=== PATIENT | female | born 1940 | race Two or more races ===

== ENCOUNTER 2023-06-26 16:34 | Emergency (ER) | payer MEDICARE, OTHER ==
[~2023-06-26] VITALS: Ht 167.6 cm; Wt 76.3 kg
[2023-06-26] MEDS ORDERED: HYDROcodone-ACET 5/325MG TAB PO ONE (17:00)
[2023-06-26] MEDS ORDERED: SODIUM CHLORIDE 0.9% 1,000 ML IV ONE ×2 (17:00→19:15)
[2023-06-26 17:21] LABS: Basophils # (auto) 0.1 10 ^3/uL (0-0.2); Basophils % (auto) 0.7 % (0.0-2.0); Eosinophils # (auto) 0.1 10 ^3/uL (0-0.8); Eosinophils % (auto) 0.8 % (0.0-7.0); Hematocrit 32.3 % (36.0-46.0); Hemoglobin 10.6 g/dL (12.2-16.2); Lymphocytes # (auto) 2.3 10 ^3/uL (0.4-5.4); Lymphocytes % (auto) 25.2 % (10.0-50.0); Mean Corpuscular Hemoglobin 29.1 pg (28.0-32.0); Mean Corpuscular Hgb Conc. 32.9 g/dL (32.0-36.0); Mean Corpuscular Volume 88.4 fL (80.0-100.0); Monocytes # (auto) 0.7 10 ^3/uL (0-1.3); Neutrophils # (auto) 5.9 10 ^3/uL (1.6-8.6); Neutrophils % (auto) 65.3 % (37.0-80.0); Nucleated Red Blood Cells % 0.1 %; Red Blood Cells 3.65 10^6/uL (4.0-5.20); Red Cell Distribution Width 15.6 % (11.8-14.3); White Blood Cell 9.1 10^3/uL (4.4-10.8)
[2023-06-26 17:36] LABS: INR 0.98 (0.9-1.15); Partial Thromboplastin Time 27.1 SEC (24.5-34.5); Prothrombin Time 10.3 sec (9.3-11.8)
[2023-06-26 17:41] LABS: Albumin 3.5 g/dL (3.4-5.0); BUN/Creatinine Ratio 16.4 (10.0-20.0); Magnesium 2.1 mg/dL (1.6-2.6); Potassium 4.2 mmol/L (3.5-5.1)
[2023-06-26 17:44] LABS: Bilirubin, Total 0.4 mg/dL (0.2-1.0); Total Protein 7.7 g/dL (6.4-8.2)
[2023-06-26 19:17] LABS: Urine Bacteria FEW /hpf (None Seen); Urine Blood Negative /uL (Negative); Urine Clarity HAZY (Clear); Urine Color Yellow (Yellow); Urine Hyaline Cast MANY /lpf (0 - 2); Urine Mucus FEW (None Seen); Urine Protein, UAD 1+ (Negative); Urine Specific Gravity 1.019 (1.001-1.035); Urine Urobilinogen Normal (Negative); Urine WBC 31 /hpf (0 - 5); Urine pH 5.5 (5.0-8.0)
[2023-06-26] MEDS ORDERED: cefTRIAXone SOD 1,000 MG VL IM ONE (19:30)
[2023-06-26] MEDS ORDERED: ACET500T58 PO (20:41)
[2023-06-26] MEDS ORDERED: LEVO750T8 PO (20:41)
[2023-06-27 01:00] VITALS: BP 123/49; PULSE 69; RESP 18; TEMP 97.4; O2SAT 97
== END 2023-06-27 01:01 | disposition home or self-care (01) ==
LOC: ER 16:34
DX: N39.0 Urinary tract infection, site not specified (principal); D64.9 Anemia, unspecified; N17.9 Acute kidney failure, unspecified; E86.1 Hypovolemia; K57.90 Diverticulosis of intestine, part unspecified, without perforation or abscess without bleeding; R06.02 Shortness of breath
CPT/HCPCS: 36415; 71045; 74176; 80053; 81001; 82962; 83735; 83880; 84484; 85025; 85610; 85730; 93005; 96360; 96361; 96372; 99285; J0696; J7030

== ENCOUNTER 2024-09-08 18:20 | Inpatient (IN) | payer MEDICARE, OTHER ==
[~2024-09-08] VITALS: Ht 157.5 cm; Wt 75.3 kg
[~2024-09-08 18:20] MED LIST: ACET500T58 PO; LEVO750T8 PO
[2024-09-08] MEDS: HYDROmorphone HCL 2 MG/ML VL/or syr IM ONE (19:57)
[2024-09-08 20:16] LABS: Basophils # (auto) 0 10 ^3/uL (0-0.2); Basophils % (auto) 0.9 % (0.0-2.0); Eosinophils # (auto) 0.2 10 ^3/uL (0-0.8); Hematocrit 29.3 % (36.0-46.0); Hemoglobin 9.5 g/dL (12.2-16.2); Lymphocytes # (auto) 2.2 10 ^3/uL (0.4-5.4); Lymphocytes % (auto) 38.3 % (10.0-50.0); Mean Corpuscular Hemoglobin 27.1 pg (28.0-32.0); Mean Corpuscular Hgb Conc. 32.5 g/dL (32.0-36.0); Mean Corpuscular Volume 83.5 fL (80.0-100.0); Monocytes # (auto) 0.5 10 ^3/uL (0-1.3); Monocytes % (auto) 9.2 % (0.0-12.0); Neutrophils # (auto) 2.8 10 ^3/uL (1.6-8.6); Neutrophils % (auto) 48.6 % (37.0-80.0); Nucleated Red Blood Cells % 0.1 %; Platelet Count (auto) 263 10^3/uL (140-450); Red Cell Distribution Width 17.2 % (11.8-14.3); White Blood Cell 5.7 10^3/uL (4.4-10.8)
[2024-09-08 20:34] LABS: Alanine Aminotransferase 13 U/L (7-40); Alkaline Phosphatase 95 U/L (46-116); Calcium 9.8 mg/dL (8.7-10.4); Carbon Dioxide 27 mmol/L (20-31); Chloride 108 mmol/L (98-107); Glucose 120 mg/dL (74-106); Lipase 24 U/L (12-53); Potassium 4.5 mmol/L (3.5-5.1)
[2024-09-08 20:35] LABS: Albumin 4.4 g/dL (3.2-4.8); Anion Gap 3 (5-15); Aspartate Aminotransferase 20 U/L (13-40); BUN/Creatinine Ratio 14.9 (10.0-20.0); Bilirubin, Total 0.3 mg/dL (0.2-1.0); Blood Urea Nitrogen 15 mg/dL (9-23); Sodium 138 mmol/L (136-145); Total Protein 7.2 g/dL (5.7-8.2)
[2024-09-08 22:08] LABS: Urine Bacteria None Seen /hpf (None Seen)
[2024-09-08 22:18] LABS: Urine Blood Negative /uL (Negative); Urine Clarity Clear (Clear); Urine Color Light-Yellow (Yellow); Urine Protein, UAD Negative (Negative); Urine Urobilinogen Normal (Negative); Urine WBC 5 /hpf (0 - 5); Urine pH 5.5 (5.0-9.0)
[2024-09-08 23:37] VITALS: PULSE 73; RESP 14; O2SAT 97
[2024-09-08] MEDS: AMOXICILLIN/CLAVUL 875 MG TAB PO ONE (23:52)
[2024-09-09] VITALS (7 sets, daily range): BP systolic 106–138; BP diastolic 45–70; PULSE 60–77; RESP 16–18; TEMP 97.9–99; O2SAT 95–100
[2024-09-09] MEDS ORDERED: ACETAMINOPHEN 325 MG TAB PO PRN (02:30)
[2024-09-09] MEDS: ACCU-CHEK COMFORT CURVE STRIP VI ONE (04:30)
[2024-09-09] MEDS: InsuLIN REG 1unit/0.01ml Soln (100units/ml) SC ONE (04:30)
[2024-09-09] MEDS: DEXTROSE (50%) 50ML SYRG IV ONE (04:30)
[2024-09-09] MEDS: metroNIDAZOLE 500MG/100ML 100 ML IV SCH (05:37)
[2024-09-09 07:02] LABS: Alanine Aminotransferase 13 U/L (7-40); Albumin 3.9 g/dL (3.2-4.8); Alkaline Phosphatase 88 U/L (46-116); Anion Gap 6 (5-15); Aspartate Aminotransferase 19 U/L (13-40); BUN/Creatinine Ratio 14.3 (10.0-20.0); Bilirubin, Total 0.4 mg/dL (0.2-1.0); Blood Urea Nitrogen 13 mg/dL (9-23); Calcium 9.6 mg/dL (8.7-10.4); Carbon Dioxide 24 mmol/L (20-31); Chloride 109 mmol/L (98-107); Glucose 102 mg/dL (74-106); Potassium 4.1 mmol/L (3.5-5.1); Sodium 139 mmol/L (136-145); Total Protein 6.5 g/dL (5.7-8.2)
[2024-09-09] MEDS: PANTOPRAZOLE 40 MG/10 ML VIAL INJ IV ONE (07:43)
[2024-09-09] MEDS: HYDROcodone-ACET 5/325MG TAB PO PRN (07:45)
[2024-09-09 07:55] LABS: Basophils # (auto) 0.1 10 ^3/uL (0-0.2); Basophils % (auto) 0.9 % (0.0-2.0); Eosinophils # (auto) 0.2 10 ^3/uL (0-0.8); Eosinophils % (auto) 3.4 % (0.0-7.0); Hematocrit 27.3 % (36.0-46.0); Lymphocytes # (auto) 2.2 10 ^3/uL (0.4-5.4); Lymphocytes % (auto) 38.7 % (10.0-50.0); Mean Corpuscular Hemoglobin 27.7 pg (28.0-32.0); Mean Corpuscular Hgb Conc. 33.2 g/dL (32.0-36.0); Mean Corpuscular Volume 83.5 fL (80.0-100.0); Monocytes # (auto) 0.6 10 ^3/uL (0-1.3); Monocytes % (auto) 10.2 % (0.0-12.0); Neutrophils # (auto) 2.6 10 ^3/uL (1.6-8.6); Neutrophils % (auto) 46.8 % (37.0-80.0); Nucleated Red Blood Cells % 0.2 %; Platelet Count (auto) 248 10^3/uL (140-450); Red Blood Cells 3.26 10^6/uL (4.0-5.20); Red Cell Distribution Width 17.5 % (11.8-14.3); White Blood Cell 5.6 10^3/uL (4.4-10.8)
[2024-09-09] MEDS: cefTRIAXone 1GM/50ML D5W 50 ML IV SCH (08:30)
[2024-09-09] MEDS: AZITHROMYCIN 500MG/ 250ML 250 ML IV ONE (10:58)
[2024-09-10] VITALS (8 sets, daily range): BP systolic 106–128; BP diastolic 43–68; PULSE 60–90; RESP 14–19; TEMP 97.9–98.8; O2SAT 93–96
[2024-09-10 01:58] LABS: COVID19 ANTIGEN SOFIA FIA NEGATIVE (NEGATIVE)
[2024-09-10 07:25] LABS: Basophils # (auto) 0.1 10 ^3/uL (0-0.2); Eosinophils # (auto) 0.1 10 ^3/uL (0-0.8); Eosinophils % (auto) 2.4 % (0.0-7.0); Hematocrit 27.4 % (36.0-46.0); Hemoglobin 9.1 g/dL (12.2-16.2); Lymphocytes # (auto) 2.1 10 ^3/uL (0.4-5.4); Lymphocytes % (auto) 36.2 % (10.0-50.0); Mean Corpuscular Hemoglobin 27.8 pg (28.0-32.0); Mean Corpuscular Hgb Conc. 33.3 g/dL (32.0-36.0); Mean Corpuscular Volume 83.3 fL (80.0-100.0); Monocytes # (auto) 0.6 10 ^3/uL (0-1.3); Monocytes % (auto) 10.1 % (0.0-12.0); Neutrophils # (auto) 2.9 10 ^3/uL (1.6-8.6); Neutrophils % (auto) 50.3 % (37.0-80.0); Platelet Count (auto) 241 10^3/uL (140-450); Red Blood Cells 3.29 10^6/uL (4.0-5.20); Red Cell Distribution Width 17.4 % (11.8-14.3); White Blood Cell 5.7 10^3/uL (4.4-10.8)
[2024-09-10 07:31] LABS: Chloride 109 mmol/L (98-107); Potassium 4.1 mmol/L (3.5-5.1); Sodium 141 mmol/L (136-145)
[2024-09-10 07:32] LABS: Anion Gap 6 (5-15); Calcium 9.5 mg/dL (8.7-10.4); Carbon Dioxide 26 mmol/L (20-31)
[2024-09-10 07:38] LABS: BUN/Creatinine Ratio 10.8 (10.0-20.0); Blood Urea Nitrogen 11 mg/dL (9-23); Glucose 98 mg/dL (74-106)
[2024-09-10] MEDS ORDERED: AZITHROMYCIN 500MG/ 250ML 250 ML IV SCH (10:00)
[2024-09-10 12:35] LABS: % Iron Saturation 12.2 % (15-50)
[2024-09-10] MEDS: IRON SUCROSE COMPLEX 100 ML IV SCH (14:30)
[2024-09-10] MEDS: DOCUSATE SOD 100 MG CAP PO SCH (22:00)
[2024-09-11 01:00] VITALS: BP 115/50; PULSE 71; RESP 20; TEMP 97.9; O2SAT 98
[2024-09-11 05:00] VITALS: BP 127/52; PULSE 68; RESP 18; TEMP 98.1; O2SAT 95
[2024-09-11 08:00] VITALS: PULSE 82; RESP 20; O2SAT 98
[2024-09-11 08:16] LABS: Basophils # (auto) 0.1 10 ^3/uL (0-0.2); Basophils % (auto) 0.9 % (0.0-2.0); Eosinophils # (auto) 0.2 10 ^3/uL (0-0.8); Eosinophils % (auto) 2.9 % (0.0-7.0); Hematocrit 29.1 % (36.0-46.0); Hemoglobin 9.7 g/dL (12.2-16.2); Lymphocytes # (auto) 2.4 10 ^3/uL (0.4-5.4); Lymphocytes % (auto) 37.9 % (10.0-50.0); Mean Corpuscular Hemoglobin 27.6 pg (28.0-32.0); Mean Corpuscular Hgb Conc. 33.3 g/dL (32.0-36.0); Mean Corpuscular Volume 82.8 fL (80.0-100.0); Monocytes # (auto) 0.6 10 ^3/uL (0-1.3); Monocytes % (auto) 9.6 % (0.0-12.0); Neutrophils # (auto) 3.1 10 ^3/uL (1.6-8.6); Neutrophils % (auto) 48.7 % (37.0-80.0); Nucleated Red Blood Cells % 0.1 %; Platelet Count (auto) 254 10^3/uL (140-450); Red Blood Cells 3.51 10^6/uL (4.0-5.20); Red Cell Distribution Width 17.2 % (11.8-14.3); White Blood Cell 6.3 10^3/uL (4.4-10.8)
[2024-09-11 08:30] LABS: Calcium 9.8 mg/dL (8.7-10.4); Chloride 108 mmol/L (98-107); Potassium 4.1 mmol/L (3.5-5.1); Sodium 139 mmol/L (136-145)
[2024-09-11 08:31] LABS: Anion Gap 7 (5-15); Carbon Dioxide 24 mmol/L (20-31)
[2024-09-11 08:36] LABS: BUN/Creatinine Ratio 10.7 (10.0-20.0); Blood Urea Nitrogen 11 mg/dL (9-23); Glucose 105 mg/dL (74-106)
[2024-09-11 08:49] LABS: Hepatitis B Surface Antigen Negative (Negative)
[2024-09-11 09:11] LABS: Hepatitis C Antibody Negative (Negative)
[2024-09-11 11:13] LABS: Ferritin 7.9 ng/mL (10-291); Folate (Folic Acid) 13.51 ng/mL (>5.38)
[2024-09-11 13:00] VITALS: BP 115/68; PULSE 82; RESP 20; TEMP 98; O2SAT 98
[2024-09-11 16:45] VITALS: BP 157/54; PULSE 60; RESP 18; TEMP 97.7; O2SAT 100
[2024-09-11] MEDS ORDERED: FER325T PO (17:32)
[2024-09-11] MEDS ORDERED: CIP500T PO (17:32)
[2024-09-11] MEDS ORDERED: MET500T PO (17:32)
[2024-09-11] MEDS: CIPROFLOXACIN HCL 500 MG TAB PO SCH (18:38)
[2024-09-11 20:13] VITALS: BP 127/54; PULSE 60; RESP 18; TEMP 97.7; O2SAT 100
[2024-09-11] MEDS ORDERED: CIPROFLOXACIN HCL 500 MG TAB PO SCH (22:00)
[2024-09-11] MEDS ORDERED: metroNIDAZOLE 500 MG TAB PO SCH (22:00)
[2024-09-11] MEDS ORDERED: CEPHALEXIN 250 MG CAP PO SCH (22:00)
[2024-09-13] MEDS ORDERED: FERROUS SULFATE 325mg EC TAB PO SCH (10:00)
== END 2024-09-11 20:33 | disposition home health service (06) | DRG 248 ==
LOC: ER 18:20 → OVERFLOW 09-09 02:19 → WEST WING 09-09 06:30
PROVIDERS: ADMIT Internal Medicine; ATTEND Emergency Medicine
DX: A04.9 Bacterial intestinal infection, unspecified (principal); E11.22 Type 2 diabetes mellitus with diabetic chronic kidney disease; D50.9 Iron deficiency anemia, unspecified; E03.9 Hypothyroidism, unspecified; E66.9 Obesity, unspecified; N39.0 Urinary tract infection, site not specified; K59.09 Other constipation; N18.30 Chronic kidney disease, stage 3 unspecified; Z20.822 Contact with and (suspected) exposure to COVID-19; I12.9 Hypertensive chronic kidney disease with stage 1 through stage 4 chronic kidney disease, or unspecified chronic kidney disease; Z96.652 Presence of left artificial knee joint; Z79.899 Other long term (current) drug therapy; Z79.2 Long term (current) use of antibiotics; Z68.30 Body mass index [BMI] 30.0-30.9, adult
CPT/HCPCS: 36415; 71045; 74176; 80048; 80053; 81001; 82306; 82378; 82607; 82728; 82746; 82962; 83036; 83540; 83550; 83605; 83690; 84443; 84484; 85025; 86803; 87340; 87426; 93005; 96372; G0378; J2470; J3490

== ENCOUNTER 2024-11-27 13:07 | Inpatient (IN) | payer MEDICARE, OTHER ==
[~2024-11-27] VITALS: Ht 154.9 cm; Wt 69.5 kg
[~2024-11-27 13:07] MED LIST changes: -ACET500T58 PO; +CIP500T PO; +FER325T PO; -LEVO750T8 PO; +MET500T PO
--- NOTE | 2024-11-27 13:41 | ED.PDOC ---
SOB-HPI HPI Comments 84 y.o female with PMhx of thyroid disease, HTN and DM, presents to the ED for a chief complaint of SOB associated with a productive cough, green and yellow phlegm that started one week ago. Patient is unable to take a full breath and states vomiting present due to productive cough. Patient denies any chest pain, fever, chills, diarrhea. Time Seen by MD: 13:34 Primary Care Provider: MARGARET Felix notes: Nurses Notes, Medications, Allergies Information Source: Patient Mode of Arrival: Ambulatory Severity: Moderate Timing: Weeks (1) Duration: Since onset Context: At Rest History of: None Modifying Factors: Nothing Associated Signs and Symptoms: Cough If cough with SOB: Productive, Yellow, Green Past Medical History PAST MEDICAL HISTORY: DM, HTN, Thyroid Surgical History: Cholecystectomy Surgical History (Other): left knee and lower back FIELD NURSE History: No Pertinent FIELD NURSE History Family History Family History: Reviewed,noncontributory to illness, No family hx of Cancer, No family hx of DM, No family hx of Heart sharron, No family hx of HTN, No family hx ofKidney sharron, No family hx of Liver sharron, No family hx of Lung sharron, No family hx of Stroke Social History Smoker: Non-Smoker Alcohol: Denies ETOH Use Drugs: Denies Drug Use Lives In: Home Constitutional: reports: chills; denies: diaphoresis, fatigue, fever, malaise, sweats, weakness, others EENTM: denies: blurred vision, double vision, ear bleeding, ear discharge, ear drainage, ear pain, ear ringing, eye pain, eye redness, hearing loss, mouth pain, mouth swelling, nasal discharge, nose bleeding, nose congestion, nose pain, photophobia, tearing, throat pain, throat swelling, voice changes, others Respiratory: reports: cough, SOB at rest, shortness of breath, SOB with excertion; denies: hemoptysis, orthopnea, stridor, wheezing, others Cardiovascular: denies: chest pain, dizzy spells, diaphoresis, Dyspnea on exertion, edema, irregular heart beat, left arm pain, lightheadedness, palpitations, PND, syncope, others Gastrointestinal: denies: abdomen distended, abdominal pain, blood streaked bowels, constipated, diarrhea, dysphagia, difficulty swallowing, hematemesis, melena, nausea, poor appetite, poor fluid intake, rectal bleeding, rectal pain, vomiting, others Genitourinary: denies: abnormal vagina bleeding, burning, dyspareunia, dysuria, flank pain, frequency, hematuria, incontinence, pain, , vagina discharge, urgency, others Neurological: denies: dizziness, fainting, headache, left sided numbness, left sided weakness, numbness, paresthesia, pre-existing deficit, right sided numbness, right sided weakness, seizure, speech problems, tingling, tremors, we akness, others Musculoskeletal: denies: back pain, gout, joint pain, joint swelling, muscle pain, muscle stiffness, neck pain, others Integumetry: denies: bruises, change in color, change in hair/nails, dryness, laceration, lesions, lumps, rash, wounds, others Allergic/Immunocompromised: denies: Difficulty Healing, Frequent Infections, Hives, Itching, others Hematologic/Lymphatic: denies: anemia, blood clots, easy bleeding, easy bruising, swollen glands, others Endocrine: denies: excessive hunger, excessive sweating, excessive thirst, excessive urination, flushing, intolerance to cold, intolerance to heat, unexplained weight gain, unexplained weight loss, others Psychiatric: denies: anxiety, bipolar disorder, depression, hopeless, panic disorder, schizophrenia, sleepless, suicidal, others All Other Systems: Reviewed and Negative Physical Exam General Appearance: Moderate Distress HEENT: Normal ENT Inspection, Pharynx Normal, TMs Normal Neck: Full Range of Motion, Non-Tender, Normal, Normal Inspection Respiratory: Chest Non-Tender, Decreased Breath Sounds, No Accessory Muscle Use, Rhonchi Cardiovascular: No Edema, No JVD, No Murmur, No Gallop, Normal Peripheral Pulses, Regular Rate/Rhythm Breast Exam: Deferred Gastrointestinal: No Organomegaly, Non Tender, No Pulsatile Mass, Normal Bowel Sounds, Soft Genitalia: Deferred Pelvic: Deferred Rectal: Deferred Extremities: No calf tenderness, Normal capillary refill, Normal inspection, Normal range of motion, Non-tender, No pedal edema Musculoskeletal : Apperance: Normal Neurologic: Alert, threading machine setter II-XII nml as Tested, No Motor Deficits, Normal Affect, Normal Mood, No Sensory Deficits Cerebellar Function: Normal Reflexes: Normal Skin: Dry, Normal Color, Warm Lymphatic: No Adenopathy Was a procedure done? Was a procedure done?: No Differential Dx Differential Diagnosis: Asthma, Bronchitis, COPD, Pneumonia, Pulmonary Embolism, Respiratory Distress, URI X-Ray, Labs, Meds, VS Vital Signs Date Time Temp Pulse Resp B/P (MAP) Pulse Ox O2 Delivery O2 Flow Rate FiO2 11/27/24 13:54 98.2 90 20 128/63 (84) 96 11/27/24 13:32 20 96 Room Air* 0 21 Lab Test 11/27/24 14:30 Range/Units White Blood Count 9.6 4.4-10.8 10^3/uL Red Blood Count 3.64 L 4.0-5.20 10^6/uL Hemoglobin 10.3 L 12.2-16.2 g/dL Hematocrit 30.7 L 36.0-46.0 % Mean Corpuscular Volume 84.5 80.0-100.0 fL Mean Corpuscular Hemoglobin 28.4 28.0-32.0 pg Mean Corpuscular Hemoglobin Concent 33.7 32.0-36.0 g/dL Red Cell Distribution Width 19.7 H 11.8-14.3 % Platelet Count 275 140-450 10^3/uL Mean Platelet Volume 7.5 6.9-10.8 fL Neutrophils (%) (Auto) 73.0 37.0-80.0 % Lymphocytes (%) (Auto) 16.6 10.0-50.0 % Monocytes (%) (Auto) 9.3 0.0-12.0 % Eosinophils (%) (Auto) 0.8 0.0-7.0 % Basophils (%) (Auto) 0.3 0.0-2.0 % Neutrophils # (Auto) 7.0 1.6-8.6 10 ^3/uL Lymphocytes # (Auto) 1.6 0.4-5.4 10 ^3/uL Monocytes # (Auto) 0.9 0-1.3 10 ^3/uL Eosinophils # (Auto) 0.1 0-0.8 10 ^3/uL Basophils # (Auto) 0 0-0.2 10 ^3/uL Nucleated Red Blood Cells 0.0 % Sodium Level 138 136-145 mmol/L Potassium Level 4.4 3.5-5.1 mmol/L Chloride Level 106 98-107 mmol/L Carbon Dioxide Level 24 20-31 mmol/L Anion Gap 8 5-15 Blood Urea Nitrogen 19 9-23 mg/dL Creatinine 1.11 H 0.550-1.02 mg/dL Glomerular Filtration Rate Calc 49 >90 mL/min BUN/Creatinine Ratio 17.1 10.0-20.0 Serum Glucose 135 H 74-106 mg/dL Lactic Acid Level 1.1 0.4-2.0 mmol/L Calcium Level 10.0 8.7-10.4 mg/dL B-Type Natriuretic Peptide 66.02 0-100 pg/mL Chest x-ray IMPRESSION: 1. No acute cardiopulmonary pathology The patient's CBC and chemistry panel are within normal limits except for anemia with a hemoglobin of 10.3 and hematocrit of 31.7 The BNP is within normal limits The lactic acid is within normal limits At this time, the patient's oxygen saturation 96% The patient was being admitted at this time The patient is pending the COVID test as well as the influenza a and influenza B The patient was admitted Images Reviewed?: Images reviewed and evaluated by me Time of 1ST Reevaluation: 13:41 Reevaluation 1ST: Unchanged Patient Education/Counseling: Diagnosis, Treatment, Prognosis Family Education/Counseling: No Family Present Departure 1 Departure Time of Disposition: 17:05 Impression: Primary Impression: Acute respiratory failure Qualified Codes: J96.00 - Acute respiratory failure, unspecified whether with hypoxia or hypercapnia Additional Impression: Cough Qualified Codes: R05.1 - Acute cough Disposition: 09 ADMITTED INPATIENT Admit to: [facility] Condition: Fair Critical Care Note Critical Care Time?: No Stability Stability form required: Yes Unstable for transfer: Telemetry monitoring (Telemetry monitoring required), ED Physician Assesment (Clinical assesment) I personally scribed for HERMAN RODRIGUEZ MD ([email or web address]) on 11/27/24 at 13:41. Electronically submitted by Amber Terrell ([facility] I personally scribed for HERMAN RODRIGUEZ MD ([email or web address]) on 11/27/24 at 16:05. E lectronically submitted by Amber Terrell ([facility]). HERMAN RODRIGUEZ MD Nov 27, 2024 13:41
--- NOTE | 2024-11-27 14:14 | DVH ---
Chest x-ray Technique: PA and lateral views Comparison: 09/09/2024 CLINICAL INDICATION: Shortness of breath FINDINGS: Heart size is slightly prominent. Aorta is tortuous. No infiltrates or effusions. Degener ative changes in the thoracic spine IMPRESSION: 1. No acute cardiopulmonary pathology
[2024-11-27 14:53] LABS: Basophils # (auto) 0 10 ^3/uL (0-0.2); Basophils % (auto) 0.3 % (0.0-2.0); Eosinophils # (auto) 0.1 10 ^3/uL (0-0.8); Eosinophils % (auto) 0.8 % (0.0-7.0); Hematocrit 30.7 % (36.0-46.0); Hemoglobin 10.3 g/dL (12.2-16.2); Lymphocytes # (auto) 1.6 10 ^3/uL (0.4-5.4); Lymphocytes % (auto) 16.6 % (10.0-50.0); Mean Corpuscular Hemoglobin 28.4 pg (28.0-32.0); Mean Corpuscular Hgb Conc. 33.7 g/dL (32.0-36.0); Mean Corpuscular Volume 84.5 fL (80.0-100.0); Monocytes # (auto) 0.9 10 ^3/uL (0-1.3); Monocytes % (auto) 9.3 % (0.0-12.0); Platelet Count (auto) 275 10^3/uL (140-450); Red Blood Cells 3.64 10^6/uL (4.0-5.20); Red Cell Distribution Width 19.7 % (11.8-14.3); White Blood Cell 9.6 10^3/uL (4.4-10.8)
[2024-11-27 14:58] LABS: Chloride 106 mmol/L (98-107); Potassium 4.4 mmol/L (3.5-5.1); Sodium 138 mmol/L (136-145)
[2024-11-27 14:59] LABS: Anion Gap 8 (5-15); Carbon Dioxide 24 mmol/L (20-31)
[2024-11-27 15:04] LABS: BUN/Creatinine Ratio 17.1 (10.0-20.0); Blood Urea Nitrogen 19 mg/dL (9-23)
[2024-11-27 15:06] LABS: Glucose 135 mg/dL (74-106)
[2024-11-27] MEDS ORDERED: ONDANSETRON HCL 4 MG/2 ML VIAL IV PRN (19:45)
[2024-11-27] MEDS ORDERED: ALBUTEROL SULF 2.5 MG/0.5ML(0.5%) NEB SOLN NEB PRN (19:45)
[2024-11-27] MEDS ORDERED: DEXTROSE (50%) 50ML SYRG IV PRN (19:45)
[2024-11-27] MEDS: ACETAMINOPHEN 325 MG TAB PO PRN (21:52)
[2024-11-27] MEDS: METOPROLOL TARTRATE 50 MG TAB PO SCH (22:12)
[2024-11-27 22:13] VITALS: BP 119/54; PULSE 78; RESP 18; TEMP 98; O2SAT 96
[2024-11-27] MEDS: InsuLIN REG 1unit/0.01ml Soln (100units/ml) SC SCH (22:19)
[2024-11-27] MEDS: ACCU-CHEK COMFORT CURVE STRIP VI SCH (22:22)
[2024-11-27 22:30] VITALS: PULSE 72; O2SAT 96
[2024-11-27] MEDS: AZITHROMYCIN 500MG/ 250ML 250 ML IV ONE (22:54)
[2024-11-27 23:19] LABS: COVID19 ANTIGEN SOFIA FIA NEGATIVE (NEGATIVE); Rapid Influenza A Negative (Negative); Rapid Influenza B Negative (Negative)
[2024-11-27 23:50] VITALS: BP 119/51; PULSE 64
[2024-11-28] VITALS (11 sets, daily range): BP systolic 109–122; BP diastolic 51–66; PULSE 62–76; RESP 16–20; TEMP 97.6–98.3; O2SAT 95–100
--- NOTE | 2024-11-28 01:40 | DVHHP2 ---
History of Present Illness Reason for Visit: Shortness for breath History of Present Illness 84-year-old female presents for evaluation of shortness for breath. Patient presents with a five day history of worsening shortness for breath with associated productive cough, green phlegm and generalized weakness. She reports intermittent chills. Denies chest pain or palpitations. No other acute complaints reported. Past Medical History Hypothyroid, hypertension, diabetes mellitus Past Surgical History Knee Family History Noncontributory Smoke: No ALCOHOL: none Drugs: None Lives: with Family Review of Systems Review of Systems Review of systems are currently negative otherwise addressed in HPI. Allergies: Coded Allergies: NO KNOWN ALLERGIES (Unverified , 06/26/23) Medications Current Medications Medications Dose Ordered Sig/Ejnni Route Start Time Stop Time Status Last Admin Dose Admin Albuterol 2.5 mg Q6HPRN PRN NEB 11/27/24 19:45 Azithromycin 250 ml @ 125 mls/hr DAILY IV 11/28/24 10:00 Levothyroxine Sodium 100 mcg QAM@0600 PO 11/28/24 06:00 Metoprolol Tartrate 50 mg BID PO 11/27/24 22:00 11/27/24 22:12 50 MG Enalapril Maleate 2.5 mg DAILY PO 11/28/24 10:00 Allopurinol 300 mg DAILY PO 11/28/24 10:00 Diagnostic Test (Pha) 1 strip ACHS 11/27/24 22:00 11/27/24 22:22 1 STRIP Insulin Human Regular ACHS SC 11/27/24 22:00 11/27/24 22:19 2 UNITS Dextrose 50 ml UD PRN IV 11/27/24 19:45 Ondansetron HCl 4 mg Q4HP PRN IV 11/27/24 19:45 Enoxaparin Sodium 40 mg DAILY SC 11/28/24 10:00 Acetaminophen 650 mg Q6HP PRN PO 11/27/24 19:45 11/27/24 21:52 650 MG Exam Vital Signs Vital Signs Date Time Temp Pulse Resp B/P (MAP) Pulse Ox O2 Delivery O2 Flow Rate FiO2 11/28/24 01:24 98.0 63 18 119/51 96 0.0 21 98.0 11/28/24 00:33 Room Air* Exam Gen: 84-year-old female in mild distress Skin: Warm, dry, normal color and texture, no rash. HEENT: Normocephalic atraumatic, mucous membranes moist and pink. Neck: Cervical and supraclavicular nodes normal without enlargement, trachea is midline, thyroid gland is normal without masses. Pulmonary: Clear to auscultation and percussion bilaterally. Cardiac: Regular rate and rhythm. No murmur Abdomen: Soft, nontender, nondistended, bowel sounds present all 4 quadrants, no guarding, no rigidity, no organomegaly. Extremities: No cyanosis, clubbing, no edema Neuro: Cranial nerves II through XII grossly intact, normal affect and speech, no focal motor deficits. Labs/Xrays ORDERING PHYSICIAN: HERMAN RODRIGUEZ MD PROCEDURE(s): CXR2 - CHEST TWO VIEWS ROUTINE REASON: cough ORDER NUMBER(s): [id number], ACCESSION NUMBER(s): [id number] Chest x-ray Technique: PA and lateral views Comparison: 09/09/2024 CLINICAL INDICATION: Shortness of breath FINDINGS: Heart size is slightly prominent. Aorta is tortuous. No infiltrates or effusions. Degenerative changes in the thoracic spine IMPRESSION: 1. No acute cardiopulmonary pathology Labs Test 11/27/24 22:24 11/27/24 14:30 Range/Units Influenza Type A Antigen Negative Negative Influenza Type B Antigen Negative Negative SARS-CoV-2 Antigen (Rapid) Negative NEGATIVE White Blood Count 9.6 4.4-10.8 10^3/uL Red Blood Count 3.64 L 4.0-5.20 10^6/uL Hemoglobin 10.3 L 12.2-16.2 g/dL Hematocrit 30.7 L 36.0-46.0 % Mean Corpuscular Volume 84.5 80.0-100.0 fL Mean Corpuscular Hemoglobin 28.4 28.0-32.0 pg Mean Corpuscular Hemoglobin Concent 33.7 32.0-36.0 g/dL Red Cell Distribution Width 19.7 H 11.8-14.3 % Platelet Count 275 140-450 10^3/uL Mean Platelet Volume 7.5 6.9-10.8 fL Neutrophils (%) (Auto) 73.0 37.0-80.0 % Lymphocytes (%) (Auto) 16.6 10.0-50.0 % Monocytes (%) (Auto) 9.3 0.0-12.0 % Eosinophils (%) (Auto) 0.8 0.0-7.0 % Basophils (%) (Auto) 0.3 0.0-2.0 % Neutrophils # (Auto) 7.0 1.6-8.6 10 ^3/uL Lymphocytes # (Auto) 1.6 0.4-5.4 10 ^3/uL Monocytes # (Auto) 0.9 0-1.3 10 ^3/uL Eosinophils # (Auto) 0.1 0-0.8 10 ^3/uL Basophils # (Auto) 0 0-0.2 10 ^3/uL Nucleated Red Blood Cells 0.0 % Sodium Level 138 136-145 mmol/L Potassium Level 4.4 3.5-5.1 mmol/L Chloride Level 106 98-107 mmol/L Carbon Dioxide Level 24 20-31 mmol/L Anion Gap 8 5-15 Blood Urea Nitrogen 19 9-23 mg/dL Creatinine 1.11 H 0.550-1.02 mg/dL Glomerular Filtration Rate Calc 49 >90 mL/min BUN/Creatinine Ratio 17.1 10.0-20.0 Serum Glucose 135 H 74-106 mg/dL Lactic Acid Level 1.1 0.4-2.0 mmol/L Calcium Level 10.0 8.7-10.4 mg/dL B-Type Natriuretic Peptide 66.02 0-100 pg/mL Assessment/Plan Assessment/Plan Assessment Acute pneumonitis Acute respiratory distress Diabetes mellitus Hypertension Acute kidney injury Plan Admit the patient to Med surge to the hospitalist Lucy Med nebs Resume home medications Continue treatment per orders. Plan discussed with: Patient My Orders Orders - MIKEY SONG AGACNP Procedure Category Date Status Time Albuterol Medneb PHA 11/27/24 In Process (Ventolin Medneb) 19:45 Azithromycin 500mg/ PHA 11/28/24 In Process 250ml (Zithromax 50 10:00 Levothyroxine Tablet PHA 11/28/24 In Process (Synthroid Tablet) 06:00 Metoprolol Tartrate PHA 11/27/24 In Process Tablet (Lopressor Ta 22:00 Enalapril Tablet PHA 11/28/24 In Process (Vasotec Tablet) 10:00 Allopurinol Tablet PHA 11/28/24 In Process (Zyloprim Tablet) 10:00 Basic Metabolic Panel LAB 11/28/24 Logged 04:00 Glucose Blood PHA 11/27/24 In Process (Accu-Chek Comfort 22:00 Insulin R (Human) PHA 11/27/24 In Process (Insulin R) 22:00 Dextrose 50% Syringe PHA 11/27/24 In Process 19:45 Admit ADMIT 11/27/24 Transmitted 19:37 Ondansetron Hcl PHA 11/27/24 In Process (Zofran) 19:45 Enoxaparin Sodium PHA 11/28/24 In Process (Lovenox) 10:00 Complete Blood Count LAB 11/28/24 Logged 04:00 Cardiac DIET 11/28/24 Transmitted Diet-2gna,Lofat,Lochol Breakfast Condition: Stable JOEY 11/27/24 In Process 19:37 Acetaminophen Tablet PHA 11/27/24 In Process (Tylenol Tablet) 19:45 Bedrest With Bathroom JOEY 11/27/24 In Process Privileg 19:37 Date of Service: Nov 27, 2024 Billing Provider: MIKEY SONG Common Visit Codes: [id number] INP/OBS CARE (HIGH) MIKEY SONG Nov 28, 2024 01:40
[2024-11-28] MEDS ORDERED: INFLUENZA TRIVALENT 2024-2025 0.5 ML INJ IM ONE (03:00)
[2024-11-28 04:32] LABS: COVID19 ANTIGEN SOFIA FIA NEGATIVE (NEGATIVE); Rapid Influenza A Negative (Negative); Rapid Influenza B Negative (Negative)
[2024-11-28] MEDS: LEVOTHYROXINE SODIUM 100 MCG TAB PO SCH (06:20)
[2024-11-28] MEDS ORDERED: NAPR-957 PO (06:38)
[2024-11-28] MEDS ORDERED: METO25TA5 PO (06:40)
[2024-11-28] MEDS ORDERED: LEVO100T8 PO (06:40)
[2024-11-28] MEDS ORDERED: CITA-73 PO (06:40)
[2024-11-28] MEDS ORDERED: METF-370 PO (06:40)
[2024-11-28 07:30] LABS: Basophils # (auto) 0 10 ^3/uL (0-0.2); Basophils % (auto) 0.4 % (0.0-2.0); Eosinophils # (auto) 0.2 10 ^3/uL (0-0.8); Eosinophils % (auto) 2.1 % (0.0-7.0); Hematocrit 27.6 % (36.0-46.0); Hemoglobin 9.5 g/dL (12.2-16.2); Mean Corpuscular Hemoglobin 29.1 pg (28.0-32.0); Mean Corpuscular Hgb Conc. 34.2 g/dL (32.0-36.0); Mean Corpuscular Volume 85.1 fL (80.0-100.0); Monocytes # (auto) 1.1 10 ^3/uL (0-1.3); Monocytes % (auto) 11.6 % (0.0-12.0); Neutrophils # (auto) 5.8 10 ^3/uL (1.6-8.6); Neutrophils % (auto) 63.9 % (37.0-80.0); Platelet Count (auto) 230 10^3/uL (140-450); Red Blood Cells 3.25 10^6/uL (4.0-5.20); Red Cell Distribution Width 19.3 % (11.8-14.3); White Blood Cell 9.1 10^3/uL (4.4-10.8)
[2024-11-28 07:57] LABS: Potassium 4.4 mmol/L (3.5-5.1); Sodium 140 mmol/L (136-145)
[2024-11-28 07:58] LABS: Anion Gap 8 (5-15); Carbon Dioxide 25 mmol/L (20-31)
[2024-11-28 07:59] LABS: Calcium 9.1 mg/dL (8.7-10.4); Chloride 107 mmol/L (98-107)
[2024-11-28 08:04] LABS: BUN/Creatinine Ratio 18.6 (10.0-20.0)
[2024-11-28 08:09] LABS: Blood Urea Nitrogen 24 mg/dL (9-23); Glucose 118 mg/dL (74-106)
[2024-11-28] MEDS: ENOXAPARIN SOD 40 MG/0.4 ML SYRINGE SC SCH (11:06)
[2024-11-28] MEDS: ALLOPURINOL 100 MG TAB PO SCH (11:06)
[2024-11-28] MEDS: ENALAPRIL MALEATE 2.5 MG TAB PO SCH (11:07)
--- NOTE | 2024-11-28 12:55 | DVHPNRES ---
Progress Note Date Seen: Nov 28, 2024 Resident Creating Document: RENU SLADE RESIDENT Medical Necessity Reason Pt with a Central, PICC or Fol: No Subjective Review of Systems Patient is a 84-year-old female with past medical history of type 2 diabetes diagnosed 12 years ago, hypertension, thyroid disease, who came in due to shortness of breath. According to the patient for the last 2 weeks, she has been experiencing a productive cough of yellowish green sputum along with generalized body aches and shortness of breath. Patient denies similar symptoms in the past. Patient notes ill contacts her daughter and daughter's kids have been sick recently. Patient also notes some chest tightness as off late. Past surgical history: Left knee surgery, back surgery Home medications: Citalopram, levothyroxine, metformin, metoprolol, metronidazole Past Hospitalization: In 2023 at the [facility] for diverticulitis Social & Personal history: Patient lives with her daughter. Denies using tobacco, alcohol, drugs. Allergies: Denies Patient seen and examined at bedside. Patient is alert and oriented to time, place person and responding to all questions. General: Fatigue Eyes: No Pain, No Vision change, No Conjunctivae inflammation, No Eyelid inflammation, No Other, No Redness ENT: No Ear pain, No Ear discharge, No Nose pain, rhinorrhea, congestion, No Mouth pain, No Mouth swelling, No Throat pain, No Throat swelling, No Other Cardiovascular: No Chest Pain, No Palpitations, No Orthopnea, dyspnea, No Edema, No Lt Headedness, No Other Respiratory: Productive cough, No Shortness of breath, No SOB with exertion, No Wheezing, No Hemoptysis, No Pleuritic Pain, No Sputum, No Other Gastrointestinal: Nausea, No Vomiting, No Abdominal Pain, No Diarrhea, C onstipation, No Melena, No Hematochezia, No Other Genitourinary: No Dysuria, No Frequency, No Incontinence, No Hematuria, No Retention, No Other Musculoskeletal: No other, No neck pain, No shoulder pain, No arm pain, No back pain, No hand pain, No leg pain, No foot pain Skin: No Rash, No Lesions, No Jaundice, No Bruising, No Other Objective vital signs Vital Sign Date Time Temp Pulse Resp B/P (MAP) Pulse Ox O2 Delivery O2 Flow Rate FiO2 11/28/24 11:07 115/66 11/28/24 09:00 97.6 68 18 97 97.6 11/28/24 08:42 Nasal Cannula 1.0 11/28/24 08:42 24 Total Intake and Output 11/27/24 11/27/24 11/28/24 15:00 23:00 07:00 Intake Total 350 ml Balance 350 ml medications Current Medications Medications Dose Ordered Sig/Jenni Route Start Time Stop Time Status Last Admin Dose Admin Albuterol 2.5 mg Q6HPRN PRN NEB 11/27/24 19:45 Azithromycin 250 ml @ 125 mls/hr DAILY IV 11/28/24 10:00 Levothyroxine Sodium 100 mcg QAM@0600 PO 11/28/24 06:00 11/28/24 06:20 100 MCG Metoprolol Tartrate 50 mg BID PO 11/27/24 22:00 11/27/24 22:12 50 MG Enalapril Maleate 2.5 mg DAILY PO 11/28/24 10:00 11/28/24 11:07 2.5 MG Allopurinol 300 mg DAILY PO 11/28/24 10:00 11/28/24 11:06 300 MG Diagnostic Test (Pha) 1 strip ACHS 11/27/24 22:00 11/28/24 11:46 1 STRIP Insulin Human Regular ACHS SC 11/27/24 22:00 11/28/24 11:27 2 UNITS Dextrose 50 ml UD PRN IV 11/27/24 19:45 Ondansetron HCl 4 mg Q4HP PRN IV 11/27/24 19:45 Enoxaparin Sodium 40 mg DAILY SC 11/28/24 10:00 11/28/24 11:06 40 MG Acetaminophen 650 mg Q6HP PRN PO 11/27/24 19:45 11/27/24 21:52 650 MG Examination General Appearance: Cooperative. Well developed. Well nourished. NAD Head Exam: Normal inspection Neck Exam: Normal inspection. Non-tender. Normal alignment Pulmonary/Respiratory: Chest non-tender. Mildly decreased bilateral breath sounds, no crackles, no wheezing. Cardiovascular/Chest: Regular rate and rhythm. No murmurs. No JVD. Peripheral Pulses: 2+ Radial (R). 2+ Radial (L). 2+ Pedal (R). 2+ Pedal (L) Abdominal Exam: Normal bowel sounds. Soft. normal abdomen, no visible veins, Nontender. No hepatospenomegaly. No masses Ankle Exam: Negative ankle edema Lower extremities: Negative lower extremity edema Neuro/Mental Status: A&O x4. Coherent. Thoughts/Psych: Normal thought pattern. Appropriate mood and affect. Good judgement and insight Skin Exam: Normal inspection. Normal color. Warm. Dry laboratory and microbiology Laboratory Tests 11/28/24 07:13 Test 11/28/24 07:13 Range/Units Serum Glucose 118 H 74-106 mg/dL Labs and/or images reviewed: Labs reviewed by me, Image(s) reviewed by me Problem List/Assessment/Plan Problem List/Assessment/Plan Acute hypoxic respiratory failure on O2 via NC Acute Pneumonitis - CXR: No acute cardiopulmonary pathology - IV azithromycin - ipratropium and albuterol med nebs - negative troponins and EKG showing left ventricular hypertrophy Type 2 diabetes Hypertension - mild sliding scale insulin - enalapril 2.5 mg DEVIN likely hemodynamically mediated/VMN - 500 cc NS bolus once - monitor Hypothyroidism - resumed home medication levothyroxine 100 mcg Microcytic anemia, likely chronic: Hemoglobin 9.5, MCV 85.1 - iron panel - monitor DVT prophylaxis: Levonox 40mg Goals of care: Full code, discussed for >16 minutes on 11/28/2024 Plan discussed with patient Plan discussed with Dr. Chavez Plan discussed with: Patient, Other (RN) Date of Service: Nov 28, 2024 Billing Provider: ULICES CHAVEZ MD Common Visit Codes: [id number] INP/OBS CARE(HIGH) RENU SLADE Nov 28, 2024 12:55 ULICES CHAVEZ MD Nov 28, 2024 20:04
[2024-11-28 13:43] LABS: % Iron Saturation 13.6 % (15-50)
[2024-11-28] MEDS: AZITHROMYCIN 500MG/ 250ML 250 ML IV SCH (13:44)
--- NOTE | 2024-11-28 14:18 | ECG ---
[facility] Test Date: 2024-11-28 Test Time: 13:28:44 Pat Name: ROSANNA NULLCODepartment: Respiratoy Room: 0221 A Gender: F [employer]: : 1940 Requested By: RENU SLADE Order Number: [id number] Reading MD: Mansi Berg Measurements Intervals [place] Rate: 62 P: 17 PA: 218 QRS: -33 QRSD: 150 T: 17 QT: 460 QTc: 468 Interpretive Statements Sinus rhythm Borderline prolonged PA interval Right bundle branch block Left ventricular hypertrophy Electronically Signed On 11-29-2024 12:30:02 PST by Mansi Berg Please click the below link to view image of tracing.
[2024-11-28 14:22] LABS: Folate (Folic Acid) 12.54 ng/mL (>5.38)
[2024-11-28] MEDS: SODIUM CHLORIDE 0.9% 500 ML IV ONE (16:44)
[2024-11-29] VITALS (7 sets, daily range): BP systolic 111–149; BP diastolic 41–60; PULSE 53–82; RESP 16–18; TEMP 97.6–98.4; O2SAT 94–98
[2024-11-29 06:58] LABS: Basophils # (auto) 0 10 ^3/uL (0-0.2); Basophils % (auto) 0.6 % (0.0-2.0); Eosinophils # (auto) 0.2 10 ^3/uL (0-0.8); Eosinophils % (auto) 3.1 % (0.0-7.0); Hematocrit 28.1 % (36.0-46.0); Hemoglobin 9.5 g/dL (12.2-16.2); Lymphocytes # (auto) 2.2 10 ^3/uL (0.4-5.4); Lymphocytes % (auto) 27.3 % (10.0-50.0); Mean Corpuscular Hemoglobin 28.8 pg (28.0-32.0); Mean Corpuscular Hgb Conc. 33.8 g/dL (32.0-36.0); Mean Corpuscular Volume 85.4 fL (80.0-100.0); Monocytes # (auto) 0.7 10 ^3/uL (0-1.3); Monocytes % (auto) 9.3 % (0.0-12.0); Neutrophils # (auto) 4.8 10 ^3/uL (1.6-8.6); Neutrophils % (auto) 59.7 % (37.0-80.0); Platelet Count (auto) 245 10^3/uL (140-450); Red Blood Cells 3.29 10^6/uL (4.0-5.20)
[2024-11-29 07:16] LABS: Potassium 4.3 mmol/L (3.5-5.1); Sodium 140 mmol/L (136-145)
[2024-11-29 07:17] LABS: Anion Gap 7 (5-15); Calcium 9.6 mg/dL (8.7-10.4); Carbon Dioxide 25 mmol/L (20-31)
[2024-11-29 07:19] LABS: Chloride 108 mmol/L (98-107)
[2024-11-29 07:22] LABS: Blood Urea Nitrogen 17 mg/dL (9-23); Glucose 95 mg/dL (74-106)
[2024-11-29] MEDS ORDERED: AZIT-185 PO (14:01)
[2024-11-29] MEDS ORDERED: DEXT7.5S3 PO (14:09)
--- NOTE | 2024-11-29 18:40 | DVHDSRES ---
Discharge Summary Date of Admission Resident Creating Document: RENU SLADE RESIDENT Nov 27, 2024 at 19:37 Date of Discharge: Nov 29, 2024 Admitting Diagnosis Shortness of breath Labs/Diagnostic Data: Laboratory Results Test 11/29/24 06:13 11/29/24 06:12 11/28/24 07:13 11/28/24 07:00 White Blood Count 8.0 10^3/uL (4.4-10.8) Red Blood Count 3.29 10^6/uL (4.0-5.20) Hemoglobin 9.5 g/dL (12.2-16.2) Hematocrit 28.1 % (36.0-46.0) Mean Corpuscular Volume 85.4 fL (80.0-100.0) Mean Corpuscular Hemoglobin 28.8 pg (28.0-32.0) Mean Corpuscular Hemoglobin Concent 33.8 g/dL (32.0-36.0) Red Cell Distribution Width 19.0 % (11.8-14.3) Platelet Count 245 10^3/uL (140-450) Mean Platelet Volume 7.5 fL (6.9-10.8) Neutrophils (%) (Auto) 59.7 % (37.0-80.0) Lymphocytes (%) (Auto) 27.3 % (10.0-50.0) Monocytes (%) (Auto) 9.3 % (0.0-12.0) Eosinophils (%) (Auto) 3.1 % (0.0-7.0) Basophils (%) (Auto) 0.6 % (0.0-2.0) Neutrophils # (Auto) 4.8 10 ^3/uL (1.6-8.6) Lymphocytes # (Auto) 2.2 10 ^3/uL (0.4-5.4) Monocytes # (Auto) 0.7 10 ^3/uL (0-1.3) Eosinophils # (Auto) 0.2 10 ^3/uL (0-0.8) Basophils # (Auto) 0 10 ^3/uL (0-0.2) Nucleated Red Blood Cells 0.0 % Sodium Level 140 mmol/L (136-145) Potassium Level 4.3 mmol/L (3.5-5.1) Chloride Level 108 mmol/L (98-107) Carbon Dioxide Level 25 mmol/L (20-31) Anion Gap 7 (5-15) Blood Urea Nitrogen 17 mg/dL (9-23) Creatinine 1.00 mg/dL (0.550-1.02) Glomerular Filtration Rate Calc 55 mL/min (>90) BUN/Creatinine Ratio 17.0 (10.0-20.0) Serum Glucose 95 mg/dL (74-106) Calcium Level 9.6 mg/dL (8.7-10.4) POC Glucose 103 mg/dl (70-106) Troponin I High Sensitivity < 3 ng/L (</=34) Hemoglobin A1c 6.2 % A1C (<5.7) Iron Level 39 ug/dL (50-170) Total Iron Binding Capacity 286 ug/dL (250-425) Percent Iron Saturation 13.6 % (15-50) Vitamin B12 Level 3550 pg/mL (211-911) Vitamin D 25-Hydroxy 33.1 ng/mL (30.0-100) Folic Acid 12.54 ng/mL (>5.38) Thyroid Stimulating Hormone (TSH) 0.73 uIU/mL (0.55-4.78) Test 11/28/24 03:05 11/27/24 14:30 Influenza Type A Antigen Negative (Negative) Influenza Type B Antigen Negative (Negative) SARS-CoV-2 Antigen (Rapid) Negative (NEGATIVE) Lactic Acid Level 1.1 mmol/L (0.4-2.0) B-Type Natriuretic Peptide 66.02 pg/mL (0-100) Other Laboratory Tests 11/29/24 06:13 Brief Hx & Hospital Course: Patient is a 84-year-old female with past medical history of type 2 diabetes diagnosed 12 years ago, hypertension, thyroid disease, who came in due to shortness of breath. According to the patient for the last 2 weeks, she has been experiencing a productive cough of yellowish green sputum along with generalized body aches and shortness of breath. Patient denies similar symptoms in the past. Patient notes ill contacts her daughter and daughter's kids have been sick recently. Patient also notes some chest tightness as off late. Hospital course: Chest x-ray showed no acute cardiopulmonary pathology. Patient was started on IV azithromycin and ipratropium albuterol med nebs. Troponins were negative and EKG showed left ventricular hypertrophy. Diabetes was managed with mild sliding scale insulin and home medication enalapril 2.5 mg was also continued. For patient's DEVIN, she was given 1 500 cc NS bolus. Home medication levothyroxine 100 mcg was also continued. On the day of discharge, patient reported improving symptoms, appeared well and had stable vital signs. Patient was discharged home with azithromycin for 3 days and Robitussin along with a follow up scheduled in the [place]. Her hospital course was uncomplicated. General Appearance: Cooperative. Well developed. Well nourished. NAD Head Exam: Normal inspection Neck Exam: Normal inspection. Non-tender. Normal alignment Pulmonary/Respiratory: Chest non-tender. Mildly decreased bilateral breath sounds, no crackles, no wheezing. Cardiovascular/Chest: Regular rate and rhythm. No murmurs. No JVD. Peripheral Pulses: 2+ Radial (R). 2+ Radial (L). 2+ Pedal (R). 2+ Pedal (L) Abdominal Exam: Normal bowel sounds. Soft. normal abdomen, no visible veins, Nontender. No hepatospenomegaly. No masses Ankle Exam: Negative ankle edema Lower extremities: Negative lower extremity edema Neuro/Mental Status: A&O x4. Coherent. Thoughts/Psych: Normal thought pattern. Appropriate mood and affect. Good judgement and insight Skin Exam: Normal inspection. Normal color. Warm. Dry Condition at Discharge: Good Final Diagnosis/Problems List Acute hypoxic respiratory failure on O2 via NC Acute Pneumonitis Type 2 diabetes Hypertension DEVIN likely hemodynamically mediated/VMN Hypothyroidism Microcytic anemia, likely chronic: Hemoglobin 9.5, MCV 85.1 Discharge Disposition: Home Discharge Instruct/Medications Diet: Consistent carbohydrate, Cardiac 2g Na,low cholest Activity: No Restrictions, As Tolerated Follow Up/Referral: please follow up with pcp in 1-2 weeks Medications: continue home medications Azithromycin 250 mg once daily for 3 days Robitussin t.i.d. as needed Discharge Statement: "Patient was advised to return to the ER or call 911 if any headaches, dizziness, shortness of breath, chest pain, abdominal pain, bleeding, fevers, or worsening of medical condition. Patient was counseled about treatment plan, medications, possible side effects, patientverbalized understanding. All questions were answered to the best of my ability. This discharge took greater then 30 minutes in planning, reviewing documentation, counseling the patient, and discussing with other team members." ASSESSMENT ASSESSMENT Assessment Acute hypoxic respiratory failure on O2 via NC Acute Pneumonitis Type 2 diabetes Hypertension DEVIN likely hemodynamically mediated/VMN Hypothyroidism Microcytic anemia, likely chronic: Hemoglobin 9.5, MCV 85.1 Date of Service: Nov 29, 2024 Billing Provider: ULICES CHAVEZ MD Common Visit Codes: 11188-FHV/OBS DISCH DAY >30min RENU SLADE RESIDENT Nov 29, 2024 18:40 ULICES CHAVEZ MD Dec 04, 2024 21:10
== END 2024-11-29 17:30 | disposition home or self-care (01) | DRG 189 ==
LOC: ER 13:07 → OVERFLOW 19:37 → CENTRAL 23:28
PROVIDERS: ADMIT Student in an Organized Health Care Education/Training Program; ATTEND Student in an Organized Health Care Education/Training Program
DX: J96.01 Acute respiratory failure with hypoxia (principal); N17.0 Acute kidney failure with tubular necrosis; E11.9 Type 2 diabetes mellitus without complications; I10 Essential (primary) hypertension; J98.4 Other disorders of lung; E03.9 Hypothyroidism, unspecified; Z20.822 Contact with and (suspected) exposure to COVID-19; D50.9 Iron deficiency anemia, unspecified; Z90.49 Acquired absence of other specified parts of digestive tract
CPT/HCPCS: 36415; 71046; 80048; 82306; 82607; 82746; 82962; 83036; 83540; 83550; 83605; 83880; 84443; 84484; 85025; 87040; 87426; 87804; 93005; G0378; J1815

== ENCOUNTER 2025-01-07 06:54 | Emergency (ER) | payer MEDICAID, OTHER ==
[~2025-01-07] VITALS: Ht 165.1 cm; Wt 70.4 kg
[~2025-01-07 06:54] MED LIST changes: +AZIT-185 PO; +CITA-73 PO; +DEXT7.5S3 PO; +LEVO100T8 PO; +METF-370 PO; +METO25TA5 PO; +NAPR-957 PO
[2025-01-07 07:40] VITALS: BP 121/68; PULSE 86; RESP 15; TEMP 97.4; O2SAT 98
--- NOTE | 2025-01-07 07:53 | DVH ---
XY R SHOULDER 2+ VIEW XRAY INDICATION: RIGHT SHOULDER PAIN TECHNICAL DATA: 3 views were obtained of the right shoulder. COMPARISON: None FINDINGS: There is no fracture or focal bone abnormality. The glenohumeral joint is normally maintained. The ac romioclavicular joint appears normal. The humeral head is not high riding. Adjacent soft tissues are within normal limits. Degenerative changes are noted involving the visualized spine. IMPRESSION: No acute fracture or dislocation of the right shoulder.
[2025-01-07] MEDS: methylPREDNISolone SOD SUCC 125 MG/2 ML VL IM ONE (08:11)
[2025-01-07] MEDS: KETOROLAC TROMETH 30 MG/ML 1ML VIAL IM ONE (08:12)
[2025-01-07] MEDS ORDERED: BACL20TA PO (08:13)
--- NOTE | 2025-01-07 08:13 | ED.PDOC ---
Musculoskeletal HPI Comments 84-year-old female brought in by daughter. Daughter states patient was folding her laundry when she felt a painful sensation in right shoulder. They went to urgent care and x-rays done and were advised that they may need to go to PCP for MRI. They went to PCP on Wednesday and referral was put in for orthopedic radiologic technologist. Daughter states that patient was given nothing for pain, she has been having pain in the shoulder since . Chief Complaint: Upper Extremity Time Seen by MD: 07:38 Primary Care Provider: UNKNOWN Reviewed Notes: Nurses Notes Allergies: Coded Allergies: NO KNOWN ALLERGIES (Unverified , 06/26/23) Home Meds Active Scripts Dextromethorphan Hbr (Robitussin [facility]) 7.5 Mg/5 Ml Syp, 7.5 MG PO TIDPRN PRN for 7 Days, #1 SYP Prov:RENU SLADE RESIDENT 11/29/24 Azithromycin (ZITHROMAX TABLET) 250 Mg Tb, 250 MG PO DAILY for 3 Days, #3 TAB Prov:RENU SLADE RESIDENT 11/29/24 Metronidazole (Metronidazole) 500 Mg Tab, 500 MG PO Q8HR for 30 Days, #90 TAB Prov:TADEO CHU MD 09/11/24 Ferrous Sulfate (Ferrous Sulfate) 325 Mg Tab, 325 MG PO EOD for 14 Days, #14 TAB Prov:TADEO CHU MD 09/11/24 Ciprofloxacin Hydrochloride (Ciprofloxacin HCl) 500 Mg Tab, 500 MG PO Q12HR for 11 Days, #22 TAB Prov:TADEO CHU MD 09/11/24 Reported Medications Metoprolol Tartrate (Metoprolol Tartrate) 25 Mg Tab, 12.5 MG PO DAILY for 30 Days, MG 11/28/24 Metformin Hydrochloride (Metformin Hcl) 500 Mg Tab, 500 MG PO DAILY for 30 Days, MG 11/28/24 Levothyroxine Sodium (Levothyroxine Sodium) 100 Mcg Tab, 100 MCG PO QAM for 30 Days, MCG 11/28/24 Citalopram Hydrobromide (Citalopram Hydrobromide) 40 Mg Tab, 40 MG PO DAILY for 30 Days, MG 11/28/24 Naproxen (Naproxen) 375 Mg Tab, 275 MG PO Q12HP PRN for pain, TAB 11/28/24 Information Source: Patient, Relative (Child) Mode of Arrival: Ambulatory Past Medical History PAST MEDICAL HISTORY: DM, HTN, Thyroid Surgical History: Cholecystectomy NETWORK CONTROL OPERATOR History: No Pertinent NETWORK CONTROL OPERATOR History Family History Family History: Reviewed,noncontributory to illness, No family hx of Cancer, No family hx of DM, No family hx of Heart sharron, No family hx of HTN, No family hx ofKidney sharron, No family hx of Liver sharron, No family hx of Lung sharron, No family hx of Stroke Social History Smoker: Non-Smoker Alcohol: Denies ETOH Use Drugs: Denies Drug Use Lives In: Home Constitutional: denies: chills, diaphoresis, fatigue, fever, malaise, sweats, weakness, others EENTM: denies: blurred vision, double vision, ear bleeding, ear discharge, ear drainage, ear pain, ear ringing, eye pain, eye redness, hearing loss, mouth pain, mouth swelling, nasal discharge, nose bleeding, nose congestion, nose pain, photophobia, tearing, throat pain, throat swelling, voice changes, others Respiratory: denies: cough, hemoptysis, orthopnea, SOB at rest, shortness of breath, SOB with excertion, stridor, wheezing, others Cardiovascular: denies: chest pain, dizzy spells, diaphoresis, Dyspnea on exertion, edema, irregular heart beat, left arm pain, lightheadedness, palpitations, PND, syncope, others Gastrointestinal: denies: abdomen distended, abdominal pain, blood streaked bowels, constipated, diarrhea, dysphagia, difficulty swallowing, hematemesis, melena, nausea, poor appetite, poor fluid intake, rectal bleeding, rectal pain, vomiting, others Genitourinary: denies: abnormal vagina bleeding, burning, dyspareunia, dysuria, flank pain, frequency, hematuria, incontinence, pain, , vagina discharge, urgency, others Neurological: denies: dizziness, fainting, headache, left sided numbness, left sided weakness, numbness, paresthesia, pre-existing deficit, right sided numbness, right sided weakness, seizure, speech problems, tingling, tremors, weakness, others Musculoskeletal: denies: back pain, gout, joint pain, joint swelling, muscle pain, muscle stiffness, neck pain, others Integumetry: denies: bruises, change in color, change in hair/nails, dryness, laceration, lesions, lumps, rash, wounds, others Allergic/Immunocompromised: denies: Difficulty Healing, Frequent Infections, Hives, Itching, others Physical Exam General Appearance: No Apparent Distress, Normal HEENT: Normal ENT Inspection, Pharynx Normal, TMs Normal Neck: Full Range of Motion, Non-Tender, Normal, Normal Inspection Respiratory: Chest Non-Tender, Lungs Clear, No Accessory Muscle Use, No Respiratory Distress, Normal Breath Sounds Cardiovascular: No Edema, No JVD, No Murmur, No Gallop, Normal Peripheral Pulses, Regular Rate/Rhythm Breast Exam: Deferred Gastrointestinal: No Organomegaly, Non Tender, No Pulsatile Mass, Normal Bowel Sounds, Soft Genitalia: Deferred Pelvic: Deferred Rectal: Deferred Extremities: No calf tenderness, Normal capillary refill, Normal inspection, Normal range of motion, Non-tender, No pedal edema Musculoskeletal : Location: Right Extremity Location: Shoulder (Limited range of motion in right shoulder due to pain. Patient currently in shoulder immobilizer/sling) Apperance: Normal Neurologic: Alert, rigging loft repairer II-XII nml as Tested, No Motor Deficits, Normal Affect, Normal Mood, No Sensory Deficits Cerebellar Function: Normal Reflexes: Normal Skin: Dry, Normal Color, Warm Lymphatic: No Adenopathy Was a procedure done? Was a procedure done?: No Differential Diagnosis EXT Differential Diagnosis: Fracture, Sprain, Dislocation X-Ray, Labs, Meds, VS Vital Signs Date Time Temp Pulse Resp B/P (MAP) Pulse Ox O2 Delivery O2 Flow Rate FiO2 01/07/25 07:40 97.4 86 15 121/68 (85) 98 97.4 01/07/25 07:40 86 15 98 Room Air 01/07/25 07:17 97.4 86 15 121/68 (85) 98 X-Ray, Labs, Meds, VS Comment Imaging: X-rays and CT scans were reviewed and interpreted by this provider, imaging shows no fractures and no pathological disease. Pending radiology review. Laboratory: Labs reviewed and interpreted by this provider. No significant abnormalities noted. Patient has prior medical visits reviewed. Med reconciliation performed Vital signs reviewed Time of 1ST Reevaluation: 08:13 Reevaluation 1ST: Improved Patient Education/Counseling: Diagnosis, Treatment, Need For Follow Up Family Education/Counseling: Diagnosis, Need For Follow Up (Patient advised to follow-up in the emergency room in the next 24 to 48 hours if symptoms do not improve. Advised follow-up with PCP in the next 3 to 5 days. Patient verbalized understanding. ) Departure 1 Departure Time of Disposition: 08:12 Impression: Primary Impression: Right shoulder injury Qualified Codes: S49.91XA - Unspecified injury of right shoulder and upper arm, initial encounter Disposition: HOME / SELF CARE / HOMELESS Condition: Fair e-Prescriptions Baclofen (Baclofen) 20 Mg Tab 1 TAB PO TID PRN, #40 TAB 3 Refills Prov: MISA HO 01/07/25 Discharged With: Relative, Legal Guardian Critical Care Note Critical Care Time?: No Stability Stability form required: No Heart Score Heart Score: Heart Score Response (Comments) Value History N/A 0 EKG N/A 0 Age N/A 0 Risk Factors N/A 0 Troponin N/A 0 Total 0 MISA HO Jan 07, 2025 08:13
== END 2025-01-07 08:22 | disposition home or self-care (01) ==
LOC: ER 06:54
DX: S49.91XA Unspecified injury of right shoulder and upper arm, initial encounter (principal); I10 Essential (primary) hypertension; E11.9 Type 2 diabetes mellitus without complications; E03.9 Hypothyroidism, unspecified; Z90.49 Acquired absence of other specified parts of digestive tract; Z79.84 Long term (current) use of oral hypoglycemic drugs; Z79.890 Hormone replacement therapy; Z79.899 Other long term (current) drug therapy; X58.XXXA Exposure to other specified factors, initial encounter; Y93.89 Activity, other specified; Y92.89 Other specified places as the place of occurrence of the external cause; Y99.8 Other external cause status
CPT/HCPCS: 73030; 96372; 99284; J1885; J2919

== ENCOUNTER → 2025-05-22 | Outpatient (CLI) | payer MEDICAID, OTHER ==
[~2025-05-22] MED LIST changes: +BACL20TA PO
[2025-05-22 08:07] LABS: Hematocrit 33.0 % (36.0-46.0); Hemoglobin 11.4 g/dL (12.2-16.2); Mean Corpuscular Hemoglobin 31.9 pg (28.0-32.0); Mean Corpuscular Volume 92.4 fL (80.0-100.0); Nucleated Red Blood Cells % 0.1 %
[2025-05-22 08:33] LABS: Alanine Aminotransferase 18 U/L (7-40); Albumin 4.5 g/dL (3.2-4.8); Alkaline Phosphatase 93 U/L (46-116); Anion Gap 8 (5-15); BUN/Creatinine Ratio 25.2 (10.0-20.0); Bilirubin, Total 0.6 mg/dL (0.2-1.0); Calcium 10.1 mg/dL (8.7-10.4); Carbon Dioxide 28 mmol/L (20-31); Chloride 105 mmol/L (98-107); Potassium 4.9 mmol/L (3.5-5.1); Sodium 141 mmol/L (136-145); Total Protein 7.3 g/dL (5.7-8.2)
[2025-05-22 08:47] LABS: Blood Urea Nitrogen 27 mg/dL (9-23); Glucose 108 mg/dL (74-106)
== END | disposition home or self-care (01) ==
LOC: LAB 07:44
PROVIDERS: ATTEND Internal Medicine
DX: E11.22 Type 2 diabetes mellitus with diabetic chronic kidney disease (principal); N18.31 Chronic kidney disease, stage 3a; D63.1 Anemia in chronic kidney disease; K57.32 Diverticulitis of large intestine without perforation or abscess without bleeding
CPT/HCPCS: 36415; 80053; 82274; 83036; 84443; 85025